=== PATIENT | male | born 1985 | race Two or more races ===

== ENCOUNTER 2018-07-21 08:54 | Emergency (ER) | payer OTHER ==
[~2018-07-21] VITALS: Ht 172.7 cm; Wt 86.4 kg
[2018-07-21 08:57] VITALS: BP 132/82
[2018-07-21] MEDS ORDERED: METHOCARBAMOL 750 MG TABLET PO ONE (09:30)
[2018-07-21] MEDS ORDERED: KETOROLAC 30 MG/1 ML IM ONE (09:30)
[2018-07-21] MEDS ORDERED: KETOROLAC 30 MG/1 ML ONE (09:34)
[2018-07-21] MEDS ORDERED: METHOCARBAMOL 750 MG TABLET ONE (09:34)
--- NOTE | 2018-07-21 09:35 | NUR ---
pt to XR
--- NOTE | 2018-07-21 09:54 | NUR ---
pt returned from XR
[2018-07-21 10:30] LABS: MICROSCOPIC NOT IND
[2018-07-21 10:34] LABS: CULTURE INDICATED? NO
--- NOTE | 2018-07-21 11:04 | NUR ---
pt upright on gurney awake & more comfortable after meds, responds approp to staff, NAD at rest, comfort measures provided, call light within reach.
--- NOTE | 2018-07-21 11:14 | NUR ---
Patient given discharge instructions and Rx, they have confirmed that they understand the instructions. Patient ambulatory with steady gait.
== END 2018-07-21 11:21 | disposition home or self-care (01) ==
LOC: ED 11:15
DX: M54.6 Pain in thoracic spine (principal)
CPT/HCPCS: 71046; 72072; 81003; 96372; 99284; J1885